=== PATIENT | female | born 1940 | race Caucasian/White ===

== ENCOUNTER 2017-08-21 14:53 | Inpatient (IN) | payer OTHER, SELFPAY ==
[~2017-08-21] VITALS: Ht 167.6 cm; Wt 66.4 kg
[~2017-08-21 14:53] MED LIST: HYDACE5 PO
[2017-08-21] MEDS ORDERED: LEVSOD75 (15:34)
[2017-08-21] MEDS ORDERED: Flovent 110 MCG12 GM (15:34)
[2017-08-21] MEDS ORDERED: Mucinex1200 MG (15:34)
[2017-08-21] MEDS ORDERED: LEVSOD88 (15:34)
[2017-08-21] MEDS ORDERED: Ventolin/Prove6.7 GM (15:34)
[2017-08-21 19:43] LABS: BASOPHILS ABSOLUTE AUTO 0.04 K/mm3 (0.00-0.23); BASOPHILS PERCENT AUTO 0 % (0-2); EOSINOPHILS ABSOLUTE AUTO 0.01 K/mm3 (0.00-0.68); EOSINOPHILS PERCENT AUTO 0 % (0-6); Hemoglobin 11.7 g/dL (11.5-16.0); IMMATURE GRAN ABSOLUTE AUTO 0.05 K/mm3 (0.00-0.10); IMMATURE GRAN PERCENT AUTO 0 % (0-1); LYMPHOCYTES ABSOLUTE AUTO 0.88 K/mm3 (0.84-5.20); LYMPHOCYTES PERCENT AUTO 6 % (21-46); MONOCYTES ABSOLUTE AUTO 0.71 K/mm3 (0.16-1.47); MONOCYTES PERCENT AUTO 4 % (4-13); Mean Corpuscular HGB 33.1 pg (26.0-34.0); Mean Corpuscular HGB Conc 32.5 g/dL (31.5-36.5); Mean Corpuscular Volume 102 fL (80-100); Mean Platelet Volume 8.8 fL (9.1-12.4); NEUTROPHILS ABSOLUTE AUTO 14.29 K/mm3 (1.96-9.15); NEUTROPHILS PERCENT AUTO 89 % (41-73); Platelet Count 265 K/mm3 (150-400); RDW Coefficient Variation 13.4 % (11.7-14.2); RDW Standard Deviation 50.3 fL (35.1-46.3); Red Blood Cell Count 3.53 M/mm3 (3.80-5.20); White Blood Cell Count 15.98 K/mm3 (4.00-11.30)
[2017-08-21 20:04] LABS: Anion Gap 9 mmol/L (6-16); Blood Urea Nitrogen 12 mg/dL (8-24); Bun/Creatinine Ratio 16.4 (12.0-20.0); CO2, Blood 25 mmol/L (21-32); Calcium, Blood 8.3 mg/dL (8.5-10.1); Chloride, Blood 103 mmol/L (98-108); Creatinine, Blood 0.73 mg/dL (0.40-1.00); Glomerular Filtration Rate >60 (60-); Glucose, Blood 121 mg/dL (70-99); Potassium, Blood 4.6 mmol/L (3.5-5.5); Sodium, Blood 137 mmol/L (136-145)
[2017-08-22 01:23] LABS: Source, Urine Catheter
[2017-08-22 01:33] LABS: Bilirubin, Urine Neg (Neg); Blood, Urine Neg (Neg); Glucose Qualitative, Urine Neg (Neg); Ketones, Urine 1+ (Neg); Leukocyte Esterase, Urine Neg (Neg); Nitrite, Urine Neg (Neg); Protein, Urine Neg (Neg); Urobilinogen, Urine NORM (Normal)
[2017-08-22 01:56] LABS: Appearance, Urine Clear (Clear); Color, Urine Yellow (P-Yellow)
[2017-08-22 04:05] LABS: BASOPHILS ABSOLUTE AUTO 0.02 K/mm3 (0.00-0.23); BASOPHILS PERCENT AUTO 0 % (0-2); EOSINOPHILS PERCENT AUTO 0 % (0-6); Hematocrit 34.6 % (33.0-51.0); Hemoglobin 11.2 g/dL (11.5-16.0); IMMATURE GRAN ABSOLUTE AUTO 0.02 K/mm3 (0.00-0.10); IMMATURE GRAN PERCENT AUTO 0 % (0-1); LYMPHOCYTES ABSOLUTE AUTO 1.41 K/mm3 (0.84-5.20); LYMPHOCYTES PERCENT AUTO 13 % (21-46); MONOCYTES ABSOLUTE AUTO 0.99 K/mm3 (0.16-1.47); MONOCYTES PERCENT AUTO 9 % (4-13); Mean Corpuscular HGB 33.1 pg (26.0-34.0); Mean Corpuscular HGB Conc 32.4 g/dL (31.5-36.5); Mean Corpuscular Volume 102 fL (80-100); Mean Platelet Volume 9.1 fL (9.1-12.4); NEUTROPHILS ABSOLUTE AUTO 8.29 K/mm3 (1.96-9.15); NEUTROPHILS PERCENT AUTO 77 % (41-73); Platelet Count 267 K/mm3 (150-400); RDW Coefficient Variation 13.5 % (11.7-14.2); RDW Standard Deviation 51.2 fL (35.1-46.3); Red Blood Cell Count 3.38 M/mm3 (3.80-5.20); White Blood Cell Count 10.73 K/mm3 (4.00-11.30)
[2017-08-22 04:22] LABS: Anion Gap 7 mmol/L (6-16); Blood Urea Nitrogen 14 mg/dL (8-24); Bun/Creatinine Ratio 19.3 (12.0-20.0); CO2, Blood 26 mmol/L (21-32); Calcium, Blood 8.2 mg/dL (8.5-10.1); Chloride, Blood 103 mmol/L (98-108); Creatinine, Blood 0.73 mg/dL (0.40-1.00); Glomerular Filtration Rate >60 (60-); Glucose, Blood 130 mg/dL (70-99); Potassium, Blood 5.2 mmol/L (3.5-5.5); Sodium, Blood 136 mmol/L (136-145)
[2017-08-23 04:58] LABS: BASOPHILS ABSOLUTE AUTO 0.04 K/mm3 (0.00-0.23); BASOPHILS PERCENT AUTO 0 % (0-2); EOSINOPHILS PERCENT AUTO 1 % (0-6); Hemoglobin 8.1 g/dL (11.5-16.0); IMMATURE GRAN ABSOLUTE AUTO 0.07 K/mm3 (0.00-0.10); IMMATURE GRAN PERCENT AUTO 1 % (0-1); LYMPHOCYTES ABSOLUTE AUTO 1.34 K/mm3 (0.84-5.20); LYMPHOCYTES PERCENT AUTO 11 % (21-46); MONOCYTES ABSOLUTE AUTO 1.25 K/mm3 (0.16-1.47); MONOCYTES PERCENT AUTO 10 % (4-13); Mean Corpuscular HGB 32.9 pg (26.0-34.0); Mean Corpuscular HGB Conc 32.4 g/dL (31.5-36.5); Mean Corpuscular Volume 102 fL (80-100); Mean Platelet Volume 9.5 fL (9.1-12.4); NEUTROPHILS ABSOLUTE AUTO 9.77 K/mm3 (1.96-9.15); NEUTROPHILS PERCENT AUTO 78 % (41-73); Platelet Count 202 K/mm3 (150-400); RDW Coefficient Variation 13.9 % (11.7-14.2); RDW Standard Deviation 51.8 fL (35.1-46.3); Red Blood Cell Count 2.46 M/mm3 (3.80-5.20); White Blood Cell Count 12.57 K/mm3 (4.00-11.30)
[2017-08-23 05:35] LABS: Anion Gap 7 mmol/L (6-16); Blood Urea Nitrogen 13 mg/dL (8-24); Bun/Creatinine Ratio 15.5 (12.0-20.0); CO2, Blood 26 mmol/L (21-32); Chloride, Blood 101 mmol/L (98-108); Creatinine, Blood 0.84 mg/dL (0.40-1.00); Glomerular Filtration Rate >60 (60-); Glucose, Blood 107 mg/dL (70-99); Potassium, Blood 4.5 mmol/L (3.5-5.5); Sodium, Blood 134 mmol/L (136-145)
[2017-08-23 09:05] LABS: Hematocrit 27.3 % (33.0-51.0); Hemoglobin 8.5 g/dL (11.5-16.0)
[2017-08-23 13:28] LABS: Alanine Aminotransfer (ALT/SGP 13 U/L (12-78); Albumin, Blood 2.7 g/dL (3.4-5.0); Albumin/Globulin Ratio 0.8 (0.8-1.8); Alk Phos 50 U/L (50-136); Aspartate Aminotrans (AST/SGOT 28 U/L (12-37); Bilirubin, Direct <0.1 mg/dL (0.0-0.3); Bilirubin, Indirect Unable to Calculate mg/dL (0.1-0.7); Bilirubin, Total 0.7 mg/dL (0.1-1.0); Globulin, Blood 3.3 g/dL (2.2-4.0)
[2017-08-23 23:45] LABS: Hematocrit 28.5 % (33.0-51.0); Hemoglobin 9.6 g/dL (11.5-16.0)
[2017-08-24 04:38] LABS: BASOPHILS ABSOLUTE AUTO 0.02 K/mm3 (0.00-0.23); BASOPHILS PERCENT AUTO 0 % (0-2); EOSINOPHILS ABSOLUTE AUTO 0.16 K/mm3 (0.00-0.68); EOSINOPHILS PERCENT AUTO 2 % (0-6); Hematocrit 28.9 % (33.0-51.0); Hemoglobin 9.4 g/dL (11.5-16.0); IMMATURE GRAN ABSOLUTE AUTO 0.03 K/mm3 (0.00-0.10); IMMATURE GRAN PERCENT AUTO 0 % (0-1); LYMPHOCYTES ABSOLUTE AUTO 1.34 K/mm3 (0.84-5.20); LYMPHOCYTES PERCENT AUTO 17 % (21-46); MONOCYTES ABSOLUTE AUTO 1.17 K/mm3 (0.16-1.47); MONOCYTES PERCENT AUTO 14 % (4-13); Mean Corpuscular HGB 31.6 pg (26.0-34.0); Mean Corpuscular HGB Conc 32.5 g/dL (31.5-36.5); Mean Platelet Volume 9.1 fL (9.1-12.4); NEUTROPHILS PERCENT AUTO 67 % (41-73); Platelet Count 172 K/mm3 (150-400); RDW Coefficient Variation 17.5 % (11.7-14.2); Red Blood Cell Count 2.97 M/mm3 (3.80-5.20); White Blood Cell Count 8.12 K/mm3 (4.00-11.30)
[2017-08-24 04:40] LABS: Mean Corpuscular Volume 97 fL (80-100)
[2017-08-24 05:17] LABS: Anion Gap 7 mmol/L (6-16); Blood Urea Nitrogen 10 mg/dL (8-24); Bun/Creatinine Ratio 12.4 (12.0-20.0); CO2, Blood 29 mmol/L (21-32); Chloride, Blood 102 mmol/L (98-108); Creatinine, Blood 0.81 mg/dL (0.40-1.00); Glomerular Filtration Rate >60 (60-); Glucose, Blood 83 mg/dL (70-99); Magnesium, Blood 2.1 mg/dL (1.6-2.4); Potassium, Blood 3.8 mmol/L (3.5-5.5); Sodium, Blood 138 mmol/L (136-145)
[2017-08-25 04:49] LABS: Hematocrit 31.2 % (33.0-51.0); Hemoglobin 10.3 g/dL (11.5-16.0)
[2017-08-26 06:06] LABS: BASOPHILS ABSOLUTE AUTO 0.02 K/mm3 (0.00-0.23); BASOPHILS PERCENT AUTO 0 % (0-2); EOSINOPHILS ABSOLUTE AUTO 0.21 K/mm3 (0.00-0.68); EOSINOPHILS PERCENT AUTO 3 % (0-6); Hematocrit 30.6 % (33.0-51.0); Hemoglobin 10.1 g/dL (11.5-16.0); IMMATURE GRAN ABSOLUTE AUTO 0.01 K/mm3 (0.00-0.10); IMMATURE GRAN PERCENT AUTO 0 % (0-1); LYMPHOCYTES ABSOLUTE AUTO 1.32 K/mm3 (0.84-5.20); LYMPHOCYTES PERCENT AUTO 18 % (21-46); MONOCYTES ABSOLUTE AUTO 0.86 K/mm3 (0.16-1.47); MONOCYTES PERCENT AUTO 12 % (4-13); Mean Corpuscular HGB 32.9 pg (26.0-34.0); Mean Platelet Volume 8.8 fL (9.1-12.4); NEUTROPHILS ABSOLUTE AUTO 4.95 K/mm3 (1.96-9.15); NEUTROPHILS PERCENT AUTO 67 % (41-73); Platelet Count 196 K/mm3 (150-400); RDW Coefficient Variation 16.1 % (11.7-14.2); RDW Standard Deviation 59.2 fL (35.1-46.3); Red Blood Cell Count 3.07 M/mm3 (3.80-5.20); White Blood Cell Count 7.37 K/mm3 (4.00-11.30)
[2017-08-26 06:10] LABS: Mean Corpuscular Volume 100 fL (80-100)
[2017-08-26 06:24] LABS: Anion Gap 5 mmol/L (6-16); Blood Urea Nitrogen 10 mg/dL (8-24); Bun/Creatinine Ratio 13.4 (12.0-20.0); CO2, Blood 28 mmol/L (21-32); Calcium, Blood 7.6 mg/dL (8.5-10.1); Chloride, Blood 107 mmol/L (98-108); Creatinine, Blood 0.75 mg/dL (0.40-1.00); Glomerular Filtration Rate >60 (60-); Glucose, Blood 94 mg/dL (70-99); Magnesium, Blood 1.7 mg/dL (1.6-2.4); Potassium, Blood 3.8 mmol/L (3.5-5.5); Sodium, Blood 140 mmol/L (136-145)
[2017-08-26] MEDS ORDERED: DOCU100 PO (10:13)
[2017-08-26] MEDS ORDERED: ACET325 PO (10:13)
[2017-08-26] MEDS ORDERED: LEVSOD75 PO (10:13)
[2017-08-26] MEDS ORDERED: Percocet 5-3251 EACH PO (10:15)
[2017-08-26] MEDS ORDERED: PANT40 PO (10:15)
== END 2017-08-26 15:05 | DRG 483 ==
LOC: ER 14:53 → SURS 17:04 → PCU 17:04 → SURS 08-22 10:21
PROVIDERS: Hospitalist; Internal Medicine; Orthopaedic Surgery
PROC: 30233N1 Transfusion of Nonautologous Red Blood Cells into Peripheral Vein, Percutaneous Approach (ICD-10-PCS; 2017-08-23)
PROC: 3E0234Z Introduction of Serum, Toxoid and Vaccine into Muscle, Percutaneous Approach (ICD-10-PCS; 2017-08-25)
PROC: 0W3P8ZZ Control Bleeding in Gastrointestinal Tract, Via Natural or Artificial Opening Endoscopic (ICD-10-PCS; 2017-08-25)
PROC: 0RRJ0J6 Replacement of Right Shoulder Joint with Synthetic Substitute, Humeral Surface, Open Approach (ICD-10-PCS; principal; 2017-08-25 07:30)
DX: S42.201A Unspecified fracture of upper end of right humerus, initial encounter for closed fracture (principal); G92 Toxic encephalopathy; K92.0 Hematemesis; J44.9 Chronic obstructive pulmonary disease, unspecified; K22.2 Esophageal obstruction; D62 Acute posthemorrhagic anemia; K25.3 Acute gastric ulcer without hemorrhage or perforation; E03.9 Hypothyroidism, unspecified; Z23 Encounter for immunization; W01.0XXA Fall on same level from slipping, tripping and stumbling without subsequent striking against object, initial encounter; Y92.480 Sidewalk as the place of occurrence of the external cause; K20.8 Other esophagitis; K44.9 Diaphragmatic hernia without obstruction or gangrene; K57.10 Diverticulosis of small intestine without perforation or abscess without bleeding; F10.10 Alcohol abuse, uncomplicated
CPT/HCPCS: 23605; 36415; 36430; 71045; 73030; 73060; 73200; 74176; 80048; 80076; 81003; 83735; 85014; 85018; 85025; 86850; 86900; 86901; 86920; 86923; 88305; 88311; 93005; 93010; 94640; 94760; 94762; 96374; 97110; 97162; 97165; 97535; 99152; 99285; C1776; C9113; G8978; G8979; G8987; G8988; G8989; J0171; J0330; J1170; J1885; J2250; J2405; J3010; J3411; J3475; J3480; J7030; J7042; J7120; P9016; Q2038

== ENCOUNTER → 2017-09-20 | Outpatient (CLI) | payer OTHER ==
[~2017-09-20] MED LIST changes: +ACET325 PO; +DOCU100 PO; +Flovent 110 MCG12 GM; +LEVSOD75; +LEVSOD75 PO; +LEVSOD88; +Mucinex1200 MG; +PANT40 PO; +Percocet 5-3251 EACH PO; +Ventolin/Prove6.7 GM
== END | disposition home or self-care (01) ==
LOC: OLS 12:45
DX: Z47.1 Aftercare following joint replacement surgery (principal); Z96.611 Presence of right artificial shoulder joint
CPT/HCPCS: 87070; 87075; 87205

== ENCOUNTER → 2017-12-22 | Outpatient (CLI) | payer OTHER, SELFPAY ==
[2017-12-22 17:52] LABS: BASOPHILS ABSOLUTE AUTO 0.05 K/mm3 (0.00-0.23); BASOPHILS PERCENT AUTO 1 % (0-2); EOSINOPHILS ABSOLUTE AUTO 0.19 K/mm3 (0.00-0.68); EOSINOPHILS PERCENT AUTO 3 % (0-6); Hematocrit 43.7 % (33.0-51.0); Hemoglobin 13.7 g/dL (11.5-16.0); IMMATURE GRAN ABSOLUTE AUTO 0.02 K/mm3 (0.00-0.10); IMMATURE GRAN PERCENT AUTO 0 % (0-1); LYMPHOCYTES ABSOLUTE AUTO 2.25 K/mm3 (0.84-5.20); LYMPHOCYTES PERCENT AUTO 29 % (21-46); MONOCYTES ABSOLUTE AUTO 0.69 K/mm3 (0.16-1.47); MONOCYTES PERCENT AUTO 9 % (4-13); Mean Corpuscular HGB 31.9 pg (26.0-34.0); Mean Corpuscular HGB Conc 31.4 g/dL (31.5-36.5); Mean Corpuscular Volume 102 fL (80-100); Mean Platelet Volume 8.8 fL (9.1-12.4); NEUTROPHILS ABSOLUTE AUTO 4.54 K/mm3 (1.96-9.15); NEUTROPHILS PERCENT AUTO 59 % (41-73); Platelet Count 374 K/mm3 (150-400); RDW Coefficient Variation 14.6 % (11.7-14.2); RDW Standard Deviation 54.2 fL (35.1-46.3); White Blood Cell Count 7.74 K/mm3 (4.00-11.30)
== END ==
LOC: LAB 12:30 → LAB SHORT 12:30
PROVIDERS: Nurse Practitioner Adult Health
DX: K21.9 Gastro-esophageal reflux disease without esophagitis (principal)
CPT/HCPCS: 85025

== ENCOUNTER → 2018-04-11 | Outpatient (CLI) | payer OTHER, SELFPAY ==
[2018-04-11 18:08] LABS: BASOPHILS ABSOLUTE AUTO 0.05 K/mm3 (0.00-0.23); BASOPHILS PERCENT AUTO 1 % (0-2); EOSINOPHILS ABSOLUTE AUTO 0.18 K/mm3 (0.00-0.68); EOSINOPHILS PERCENT AUTO 3 % (0-6); Hematocrit 49.9 % (33.0-51.0); IMMATURE GRAN ABSOLUTE AUTO 0.01 K/mm3 (0.00-0.10); IMMATURE GRAN PERCENT AUTO 0 % (0-1); LYMPHOCYTES ABSOLUTE AUTO 1.92 K/mm3 (0.84-5.20); LYMPHOCYTES PERCENT AUTO 29 % (21-46); MONOCYTES ABSOLUTE AUTO 0.53 K/mm3 (0.16-1.47); MONOCYTES PERCENT AUTO 8 % (4-13); Mean Corpuscular HGB 32.2 pg (26.0-34.0); Mean Corpuscular HGB Conc 32.1 g/dL (31.5-36.5); Mean Corpuscular Volume 100 fL (80-100); Mean Platelet Volume 9.3 fL (9.1-12.4); NEUTROPHILS ABSOLUTE AUTO 3.93 K/mm3 (1.96-9.15); NEUTROPHILS PERCENT AUTO 59 % (41-73); Platelet Count 329 K/mm3 (150-400); RDW Coefficient Variation 14.2 % (11.7-14.2); Red Blood Cell Count 4.97 M/mm3 (3.80-5.20); White Blood Cell Count 6.62 K/mm3 (4.00-11.30)
[2018-04-11 19:30] LABS: Alanine Aminotransfer (ALT/SGP 14 U/L (12-78); Alk Phos 97 U/L (50-136); Anion Gap 9 mmol/L (6-16); Aspartate Aminotrans (AST/SGOT 17 U/L (12-37); Bilirubin, Total 0.6 mg/dL (0.1-1.0); Blood Urea Nitrogen 6 mg/dL (8-24); CHOL/HDL RATIO 2.6; CO2, Blood 27 mmol/L (21-32); Calcium, Blood 9.2 mg/dL (8.5-10.1); Chloride, Blood 102 mmol/L (98-108); Cholesterol 201 mg/dL (50-200); Creatinine, Blood 0.67 mg/dL (0.40-1.00); Free Thyroxine 1.19 ng/dL (0.70-1.60); Globulin, Blood 4.2 g/dL (2.2-4.0); Glomerular Filtration Rate >60 (60-); Glucose, Blood 84 mg/dL (70-99); HDL Cholesterol 77 mg/dL (>39); LDL/HDL RATIO 1.4; Low Density Lipoprotein Chol 111 mg/dL (0-110); Potassium, Blood 3.9 mmol/L (3.5-5.5); Sodium, Blood 138 mmol/L (136-145); Total Protein, Blood 8.2 g/dL (6.4-8.2); Triglycerides 65 mg/dL (30-160); Very Low Density Lipoprot Chol 13 mg/dL (6-32)
== END | disposition home or self-care (01) ==
LOC: LAB 17:46 → LAB SHORT 17:46
PROVIDERS: Nurse Practitioner Adult Health
DX: K21.9 Gastro-esophageal reflux disease without esophagitis (principal); D53.9 Nutritional anemia, unspecified; J44.9 Chronic obstructive pulmonary disease, unspecified; E03.9 Hypothyroidism, unspecified
CPT/HCPCS: 80053; 80061; 84439; 84443; 85025

== ENCOUNTER → 2018-07-06 | Outpatient (CLI) | payer OTHER ==
[2018-07-06 17:54] LABS: BASOPHILS ABSOLUTE AUTO 0.05 K/mm3 (0.00-0.23); BASOPHILS PERCENT AUTO 1 % (0-2); EOSINOPHILS ABSOLUTE AUTO 0.09 K/mm3 (0.00-0.68); EOSINOPHILS PERCENT AUTO 1 % (0-6); Hematocrit 47.4 % (33.0-51.0); Hemoglobin 15.4 g/dL (11.5-16.0); IMMATURE GRAN ABSOLUTE AUTO 0.01 K/mm3 (0.00-0.10); IMMATURE GRAN PERCENT AUTO 0 % (0-1); LYMPHOCYTES ABSOLUTE AUTO 1.87 K/mm3 (0.84-5.20); LYMPHOCYTES PERCENT AUTO 28 % (21-46); MONOCYTES ABSOLUTE AUTO 0.56 K/mm3 (0.16-1.47); MONOCYTES PERCENT AUTO 9 % (4-13); Mean Corpuscular HGB 33.3 pg (26.0-34.0); Mean Corpuscular HGB Conc 32.5 g/dL (31.5-36.5); Mean Corpuscular Volume 102 fL (80-100); Mean Platelet Volume 9.1 fL (9.1-12.4); NEUTROPHILS ABSOLUTE AUTO 4.02 K/mm3 (1.96-9.15); NEUTROPHILS PERCENT AUTO 61 % (41-73); Platelet Count 318 K/mm3 (150-400); RDW Coefficient Variation 13.4 % (11.7-14.2); RDW Standard Deviation 51.4 fL (35.1-46.3); Red Blood Cell Count 4.63 M/mm3 (3.80-5.20)
[2018-07-06 18:26] LABS: Free Thyroxine 0.95 ng/dL (0.70-1.60)
[2018-07-06 18:36] LABS: Alanine Aminotransfer (ALT/SGP 14 U/L (12-78); Albumin, Blood 3.9 g/dL (3.4-5.0); Albumin/Globulin Ratio 0.9 (0.8-1.8); Alk Phos 100 U/L (50-136); Anion Gap 4 mmol/L (6-16); Aspartate Aminotrans (AST/SGOT 14 U/L (12-37); Bilirubin, Total 0.4 mg/dL (0.1-1.0); Blood Urea Nitrogen 10 mg/dL (8-24); Bun/Creatinine Ratio 13.1 (12.0-20.0); CO2, Blood 30 mmol/L (21-32); Calcium, Blood 9.3 mg/dL (8.5-10.1); Chloride, Blood 100 mmol/L (98-108); Creatinine, Blood 0.76 mg/dL (0.40-1.00); Globulin, Blood 4.4 g/dL (2.2-4.0); Glomerular Filtration Rate >60 (60-); Glucose, Blood 81 mg/dL (70-99); Potassium, Blood 4.4 mmol/L (3.5-5.5); Sodium, Blood 134 mmol/L (136-145); Total Protein, Blood 8.3 g/dL (6.4-8.2)
== END ==
LOC: LAB 12:31 → LAB SHORT 12:31
PROVIDERS: Nurse Practitioner Family
DX: E03.9 Hypothyroidism, unspecified (principal); D64.9 Anemia, unspecified; E83.51 Hypocalcemia
CPT/HCPCS: 80053; 84439; 84443; 85025

== ENCOUNTER → 2018-08-09 | Outpatient (CLI) | payer OTHER ==
[2018-08-09 20:07] LABS: Alanine Aminotransfer (ALT/SGP 16 U/L (12-78); Alk Phos 97 U/L (50-136); Anion Gap 11 mmol/L (6-16); Aspartate Aminotrans (AST/SGOT 14 U/L (12-37); Bilirubin, Total 0.9 mg/dL (0.1-1.0); Blood Urea Nitrogen 9 mg/dL (8-24); Bun/Creatinine Ratio 10.5 (12.0-20.0); CO2, Blood 23 mmol/L (21-32); Calcium, Blood 9.1 mg/dL (8.5-10.1); Chloride, Blood 98 mmol/L (98-108); Creatinine, Blood 0.86 mg/dL (0.40-1.00); Globulin, Blood 4.1 g/dL (2.2-4.0); Glomerular Filtration Rate >60 (60-); Glucose, Blood 76 mg/dL (70-99); Potassium, Blood 4.3 mmol/L (3.5-5.5); Sodium, Blood 132 mmol/L (136-145); Total Protein, Blood 8.1 g/dL (6.4-8.2)
[2018-08-10 11:58] LABS: BASOPHILS ABSOLUTE AUTO 0.06 K/mm3 (0.00-0.23); BASOPHILS PERCENT AUTO 1 % (0-2); EOSINOPHILS ABSOLUTE AUTO 0.11 K/mm3 (0.00-0.68); EOSINOPHILS PERCENT AUTO 2 % (0-6); Hematocrit 49.3 % (33.0-51.0); Hemoglobin 15.8 g/dL (11.5-16.0); IMMATURE GRAN ABSOLUTE AUTO 0.01 K/mm3 (0.00-0.10); IMMATURE GRAN PERCENT AUTO 0 % (0-1); LYMPHOCYTES ABSOLUTE AUTO 1.87 K/mm3 (0.84-5.20); LYMPHOCYTES PERCENT AUTO 27 % (21-46); MONOCYTES ABSOLUTE AUTO 0.53 K/mm3 (0.16-1.47); MONOCYTES PERCENT AUTO 8 % (4-13); Mean Corpuscular HGB 33.4 pg (26.0-34.0); Mean Corpuscular Volume 104 fL (80-100); Mean Platelet Volume 9.5 fL (9.1-12.4); NEUTROPHILS PERCENT AUTO 63 % (41-73); Platelet Count 317 K/mm3 (150-400); RDW Coefficient Variation 13.3 % (11.7-14.2); RDW Standard Deviation 51.7 fL (35.1-46.3); Red Blood Cell Count 4.73 M/mm3 (3.80-5.20); White Blood Cell Count 6.98 K/mm3 (4.00-11.30)
[2018-08-10 23:08] LABS: Free Thyroxine 1.19 ng/dL (0.70-1.60)
== END ==
LOC: LAB 12:15 → LAB SHORT 12:15
PROVIDERS: Nurse Practitioner Family
DX: M81.0 Age-related osteoporosis without current pathological fracture (principal); E03.9 Hypothyroidism, unspecified
CPT/HCPCS: 80053; 83970; 84439; 84443; 85025

== ENCOUNTER → 2018-10-10 | Outpatient (CLI) | payer OTHER ==
[2018-10-10 20:12] LABS: Free Thyroxine 1.1 ng/dL (0.70-1.60)
[2018-10-10 20:17] LABS: Thyroid Stimulating Hormone 3.81 uIU/mL (0.360-4.800)
== END ==
LOC: LAB SHORT 17:54 → LAB 17:54
PROVIDERS: Nurse Practitioner Family
DX: E03.9 Hypothyroidism, unspecified (principal)
CPT/HCPCS: 84439; 84443

== ENCOUNTER → 2018-11-09 | Outpatient (CLI) | payer OTHER ==
[2018-11-09 18:35] LABS: BASOPHILS ABSOLUTE AUTO 0.04 K/mm3 (0.00-0.23); BASOPHILS PERCENT AUTO 1 % (0-2); EOSINOPHILS ABSOLUTE AUTO 0.17 K/mm3 (0.00-0.68); EOSINOPHILS PERCENT AUTO 3 % (0-6); Hematocrit 42.6 % (33.0-51.0); Hemoglobin 13.9 g/dL (11.5-16.0); IMMATURE GRAN ABSOLUTE AUTO 0.01 K/mm3 (0.00-0.10); IMMATURE GRAN PERCENT AUTO 0 % (0-1); LYMPHOCYTES ABSOLUTE AUTO 1.52 K/mm3 (0.84-5.20); LYMPHOCYTES PERCENT AUTO 23 % (21-46); MONOCYTES ABSOLUTE AUTO 0.75 K/mm3 (0.16-1.47); MONOCYTES PERCENT AUTO 11 % (4-13); Mean Corpuscular HGB Conc 32.6 g/dL (31.5-36.5); Mean Corpuscular Volume 101 fL (80-100); Mean Platelet Volume 8.9 fL (9.1-12.4); NEUTROPHILS PERCENT AUTO 62 % (41-73); Platelet Count 565 K/mm3 (150-400); RDW Standard Deviation 51.3 fL (35.1-46.3); Red Blood Cell Count 4.21 M/mm3 (3.80-5.20); White Blood Cell Count 6.59 K/mm3 (4.00-11.30)
[2018-11-09 18:56] LABS: Alanine Aminotransfer (ALT/SGP 15 U/L (12-78); Alk Phos 87 U/L (50-136); Anion Gap 2 mmol/L (6-16); Aspartate Aminotrans (AST/SGOT 11 U/L (12-37); Bilirubin, Total 0.5 mg/dL (0.1-1.0); Blood Urea Nitrogen 9 mg/dL (8-24); Bun/Creatinine Ratio 12.2 (12.0-20.0); CO2, Blood 34 mmol/L (21-32); Chloride, Blood 103 mmol/L (98-108); Creatinine, Blood 0.74 mg/dL (0.40-1.00); Globulin, Blood 3.9 g/dL (2.2-4.0); Glomerular Filtration Rate >60 (60-); Glucose, Blood 93 mg/dL (70-99); Phosphorus, Blood 2.7 mg/dL (2.5-4.9); Sodium, Blood 139 mmol/L (136-145); Total Protein, Blood 7.9 g/dL (6.4-8.2)
== END ==
LOC: LAB 17:57 → LAB SHORT 17:57
PROVIDERS: Nurse Practitioner Family
DX: D53.9 Nutritional anemia, unspecified (principal); M81.0 Age-related osteoporosis without current pathological fracture
CPT/HCPCS: 80053; 82306; 83970; 84100; 85025

== ENCOUNTER → 2019-01-24 | Outpatient (CLI) | payer OTHER | END | disposition home or self-care (01) | LOC: LAB SHORT 10:15 → LAB 10:15 | DX: E03.9 Hypothyroidism, unspecified (principal) | CPT/HCPCS: 84443 ==

== ENCOUNTER → 2019-04-17 | Outpatient (CLI) | payer OTHER | END | disposition home or self-care (01) | LOC: LAB 18:25 → LAB SHORT 18:25 | DX: E03.9 Hypothyroidism, unspecified (principal) | CPT/HCPCS: 84443 ==

== ENCOUNTER → 2019-05-01 | Outpatient (CLI) | payer OTHER ==
[2019-05-01 19:53] LABS: Alanine Aminotransfer (ALT/SGP 14 U/L (12-78); Albumin, Blood 3.9 g/dL (3.4-5.0); Albumin/Globulin Ratio 1.1 (0.8-1.8); Alk Phos 69 U/L (50-136); Anion Gap 4 mmol/L (6-16); Aspartate Aminotrans (AST/SGOT 12 U/L (12-37); Bilirubin, Total 0.7 mg/dL (0.1-1.0); Blood Urea Nitrogen 11 mg/dL (8-24); Bun/Creatinine Ratio 14.3 (12.0-20.0); CO2, Blood 29 mmol/L (21-32); Calcium, Blood 9.3 mg/dL (8.5-10.1); Chloride, Blood 103 mmol/L (98-108); Creatinine, Blood 0.77 mg/dL (0.40-1.00); Globulin, Blood 3.6 g/dL (2.2-4.0); Glomerular Filtration Rate >60 (60-); Glucose, Blood 88 mg/dL (70-99); Phosphorus, Blood 2.9 mg/dL (2.5-4.9); Sodium, Blood 136 mmol/L (136-145); Total Protein, Blood 7.5 g/dL (6.4-8.2)
[2019-05-02 17:30] LABS: BASOPHILS ABSOLUTE AUTO 0.04 K/mm3 (0.00-0.23); BASOPHILS PERCENT AUTO 1 % (0-2); EOSINOPHILS PERCENT AUTO 2 % (0-6); Hematocrit 49.1 % (33.0-51.0); IMMATURE GRAN ABSOLUTE AUTO 0.01 K/mm3 (0.00-0.10); IMMATURE GRAN PERCENT AUTO 0 % (0-1); LYMPHOCYTES ABSOLUTE AUTO 1.65 K/mm3 (0.84-5.20); LYMPHOCYTES PERCENT AUTO 28 % (21-46); MONOCYTES ABSOLUTE AUTO 0.57 K/mm3 (0.16-1.47); MONOCYTES PERCENT AUTO 10 % (4-13); Mean Corpuscular HGB 33.3 pg (26.0-34.0); Mean Corpuscular HGB Conc 32.6 g/dL (31.5-36.5); Mean Corpuscular Volume 102 fL (80-100); Mean Platelet Volume 9.5 fL (9.1-12.4); NEUTROPHILS ABSOLUTE AUTO 3.61 K/mm3 (1.96-9.15); NEUTROPHILS PERCENT AUTO 60 % (41-73); Platelet Count 324 K/mm3 (150-400); Red Blood Cell Count 4.81 M/mm3 (3.80-5.20); White Blood Cell Count 5.98 K/mm3 (4.00-11.30)
== END | disposition home or self-care (01) ==
LOC: LAB 18:51 → LAB SHORT 18:51
PROVIDERS: Nurse Practitioner Family
DX: M81.0 Age-related osteoporosis without current pathological fracture (principal); E03.9 Hypothyroidism, unspecified
CPT/HCPCS: 80053; 84100; 85025

== ENCOUNTER → 2019-09-05 | Outpatient (CLI) | payer OTHER ==
[2019-09-05 17:48] LABS: BASOPHILS ABSOLUTE AUTO 0.06 K/mm3 (0.00-0.23); BASOPHILS PERCENT AUTO 1 % (0-2); EOSINOPHILS ABSOLUTE AUTO 0.15 K/mm3 (0.00-0.68); EOSINOPHILS PERCENT AUTO 2 % (0-6); Hematocrit 49.4 % (33.0-51.0); Hemoglobin 16.1 g/dL (11.5-16.0); IMMATURE GRAN ABSOLUTE AUTO 0.01 K/mm3 (0.00-0.10); IMMATURE GRAN PERCENT AUTO 0 % (0-1); LYMPHOCYTES ABSOLUTE AUTO 2.05 K/mm3 (0.84-5.20); LYMPHOCYTES PERCENT AUTO 31 % (21-46); MONOCYTES ABSOLUTE AUTO 0.61 K/mm3 (0.16-1.47); MONOCYTES PERCENT AUTO 9 % (4-13); Mean Corpuscular HGB 33.3 pg (26.0-34.0); Mean Corpuscular HGB Conc 32.6 g/dL (31.5-36.5); Mean Corpuscular Volume 102 fL (80-100); Mean Platelet Volume 9.2 fL (9.1-12.4); NEUTROPHILS ABSOLUTE AUTO 3.77 K/mm3 (1.96-9.15); NEUTROPHILS PERCENT AUTO 57 % (41-73); Platelet Count 295 K/mm3 (150-400); RDW Standard Deviation 49.1 fL (35.1-46.3); Red Blood Cell Count 4.84 M/mm3 (3.80-5.20); White Blood Cell Count 6.65 K/mm3 (4.00-11.30)
[2019-09-05 18:08] LABS: Alanine Aminotransfer (ALT/SGP 14 U/L (12-78); Albumin, Blood 3.9 g/dL (3.4-5.0); Albumin/Globulin Ratio 1.1 (0.8-1.8); Alk Phos 66 U/L (50-136); Anion Gap 2 mmol/L (6-16); Aspartate Aminotrans (AST/SGOT 14 U/L (12-37); Bilirubin, Total 0.6 mg/dL (0.1-1.0); Blood Urea Nitrogen 10 mg/dL (8-24); Bun/Creatinine Ratio 12.1 (12.0-20.0); CHOL/HDL RATIO 2.4; CO2, Blood 31 mmol/L (21-32); Calcium, Blood 9.3 mg/dL (8.5-10.1); Chloride, Blood 103 mmol/L (98-108); Cholesterol 187 mg/dL (50-200); Creatinine, Blood 0.83 mg/dL (0.40-1.00); Globulin, Blood 3.6 g/dL (2.2-4.0); Glomerular Filtration Rate >60 (60-); Glucose, Blood 108 mg/dL (70-99); HDL Cholesterol 78 mg/dL (>39); LDL/HDL RATIO 1.3; Low Density Lipoprotein Chol 98 mg/dL (0-110); Potassium, Blood 3.7 mmol/L (3.5-5.5); Sodium, Blood 136 mmol/L (136-145); Total Protein, Blood 7.5 g/dL (6.4-8.2); Triglycerides 57 mg/dL (30-160); Very Low Density Lipoprot Chol 11 mg/dL (6-32)
[2019-09-05 18:10] LABS: LDL Direct Measurement 93 mg/dL (0-130)
== END | disposition home or self-care (01) ==
LOC: LAB 16:12 → LAB SHORT 16:12
PROVIDERS: Nurse Practitioner Family
DX: M81.0 Age-related osteoporosis without current pathological fracture (principal); E78.2 Mixed hyperlipidemia
CPT/HCPCS: 80053; 80061; 83721; 85025

== ENCOUNTER → 2020-04-08 | Outpatient (CLI) | payer OTHER ==
[2020-04-08 19:24] LABS: BASOPHILS ABSOLUTE AUTO 0.06 K/mm3 (0.00-0.23); BASOPHILS PERCENT AUTO 1 % (0-2); EOSINOPHILS ABSOLUTE AUTO 0.17 K/mm3 (0.00-0.68); EOSINOPHILS PERCENT AUTO 2 % (0-6); Hematocrit 48.3 % (33.0-51.0); Hemoglobin 15.8 g/dL (11.5-16.0); IMMATURE GRAN ABSOLUTE AUTO 0.02 K/mm3 (0.00-0.10); IMMATURE GRAN PERCENT AUTO 0 % (0-1); LYMPHOCYTES ABSOLUTE AUTO 1.99 K/mm3 (0.84-5.20); LYMPHOCYTES PERCENT AUTO 27 % (21-46); MONOCYTES ABSOLUTE AUTO 0.74 K/mm3 (0.16-1.47); MONOCYTES PERCENT AUTO 10 % (4-13); Mean Corpuscular HGB 33.1 pg (26.0-34.0); Mean Corpuscular HGB Conc 32.7 g/dL (31.5-36.5); Mean Corpuscular Volume 101 fL (80-100); Mean Platelet Volume 9.6 fL (9.1-12.4); NEUTROPHILS ABSOLUTE AUTO 4.49 K/mm3 (1.96-9.15); NEUTROPHILS PERCENT AUTO 60 % (41-73); Platelet Count 313 K/mm3 (150-400); RDW Coefficient Variation 14.1 % (11.7-14.2); RDW Standard Deviation 52.8 fL (35.1-46.3); Red Blood Cell Count 4.78 M/mm3 (3.80-5.20); White Blood Cell Count 7.47 K/mm3 (4.00-11.30)
[2020-04-08 20:07] LABS: Very Low Density Lipoprot Chol 14 mg/dL (6-32)
[2020-04-08 20:16] LABS: Alanine Aminotransfer (ALT/SGP 14 U/L (12-78); Albumin, Blood 3.8 g/dL (3.4-5.0); Alk Phos 85 U/L (50-136); Anion Gap 6 mmol/L (6-16); Aspartate Aminotrans (AST/SGOT 20 U/L (12-37); Bilirubin, Total 0.6 mg/dL (0.1-1.0); Blood Urea Nitrogen 10 mg/dL (8-24); Bun/Creatinine Ratio 13.2 (12.0-20.0); CO2, Blood 30 mmol/L (21-32); Calcium, Blood 9.5 mg/dL (8.5-10.1); Chloride, Blood 102 mmol/L (98-108); Cholesterol 213 mg/dL (50-200); Creatinine, Blood 0.76 mg/dL (0.40-1.00); Globulin, Blood 3.7 g/dL (2.2-4.0); Glomerular Filtration Rate >60 (60-); Glucose, Blood 106 mg/dL (70-99); HDL Cholesterol 70 mg/dL (>39); LDL/HDL RATIO 1.8; Low Density Lipoprotein Chol 129 mg/dL (0-110); Potassium, Blood 4.3 mmol/L (3.5-5.5); Sodium, Blood 138 mmol/L (136-145); Total Protein, Blood 7.5 g/dL (6.4-8.2); Triglycerides 71 mg/dL (30-160)
== END ==
LOC: LAB SHORT 18:25 → LAB 18:25
PROVIDERS: Nurse Practitioner Family
DX: E03.9 Hypothyroidism, unspecified (principal); E78.2 Mixed hyperlipidemia
CPT/HCPCS: 80053; 80061; 84443; 85025

== ENCOUNTER → 2020-04-15 | Outpatient (CLI) | payer OTHER | LOC: LAB SHORT 16:43 → LAB 16:43 | DX: E03.9 Hypothyroidism, unspecified (principal); M81.0 Age-related osteoporosis without current pathological fracture | CPT/HCPCS: 82306; 84443 ==

== ENCOUNTER → 2020-05-27 | Outpatient (CLI) | payer OTHER | END | disposition home or self-care (01) | LOC: LAB 16:33 → LAB SHORT 16:33 | DX: E03.9 Hypothyroidism, unspecified (principal) | CPT/HCPCS: 84443 ==

== ENCOUNTER → 2020-07-17 | Outpatient (CLI) | payer OTHER, SELFPAY | END | disposition home or self-care (01) | LOC: LAB SHORT 16:21 → LAB 16:21 | DX: E03.9 Hypothyroidism, unspecified (principal) | CPT/HCPCS: 84443 ==

== ENCOUNTER → 2020-10-17 | Outpatient (CLI) | payer OTHER ==
[2020-10-17 19:20] LABS: BASOPHILS ABSOLUTE AUTO 0.06 K/mm3 (0.00-0.23); BASOPHILS PERCENT AUTO 1 % (0-2); EOSINOPHILS ABSOLUTE AUTO 0.23 K/mm3 (0.00-0.68); EOSINOPHILS PERCENT AUTO 3 % (0-6); Hematocrit 42.1 % (33.0-51.0); Hemoglobin 13.8 g/dL (11.5-16.0); IMMATURE GRAN ABSOLUTE AUTO 0.02 K/mm3 (0.00-0.10); IMMATURE GRAN PERCENT AUTO 0 % (0-1); LYMPHOCYTES ABSOLUTE AUTO 1.82 K/mm3 (0.84-5.20); LYMPHOCYTES PERCENT AUTO 26 % (21-46); MONOCYTES ABSOLUTE AUTO 0.65 K/mm3 (0.16-1.47); MONOCYTES PERCENT AUTO 9 % (4-13); Mean Corpuscular HGB 32.2 pg (26.0-34.0); Mean Corpuscular HGB Conc 32.8 g/dL (31.5-36.5); Mean Corpuscular Volume 98 fL (80-100); Mean Platelet Volume 9.3 fL (9.1-12.4); NEUTROPHILS ABSOLUTE AUTO 4.22 K/mm3 (1.96-9.15); NEUTROPHILS PERCENT AUTO 60 % (41-73); Platelet Count 285 K/mm3 (150-400); RDW Standard Deviation 50.6 fL (35.1-46.3); Red Blood Cell Count 4.28 M/mm3 (3.80-5.20)
[2020-10-17 19:49] LABS: Alanine Aminotransfer (ALT/SGP 17 U/L (12-78); Albumin/Globulin Ratio 1.1 (0.8-1.8); Alk Phos 70 U/L (50-136); Anion Gap 6 mmol/L (6-16); Aspartate Aminotrans (AST/SGOT 13 U/L (12-37); Bilirubin, Total 0.6 mg/dL (0.1-1.0); Blood Urea Nitrogen 22 mg/dL (8-24); Bun/Creatinine Ratio 25.6 (12.0-20.0); CHOL/HDL RATIO 2.3; CO2, Blood 26 mmol/L (21-32); Chloride, Blood 105 mmol/L (98-108); Cholesterol 209 mg/dL (50-200); Creatinine, Blood 0.86 mg/dL (0.40-1.00); Free Thyroxine 0.85 ng/dL (0.70-1.60); Globulin, Blood 3.6 g/dL (2.2-4.0); Glomerular Filtration Rate >60 (60-); Glucose, Blood 113 mg/dL (70-99); HDL Cholesterol 90 mg/dL (>39); LDL/HDL RATIO 1.2; Low Density Lipoprotein Chol 111 mg/dL (0-110); Sodium, Blood 137 mmol/L (136-145); Total Protein, Blood 7.6 g/dL (6.4-8.2); Triglycerides 40 mg/dL (30-160); Triiodothyronine, Free 1.24 pg/mL (2.18-3.98); Very Low Density Lipoprot Chol 8 mg/dL (6-32)
== END | disposition home or self-care (01) ==
LOC: LAB 08:46 → LAB SHORT 08:46
PROVIDERS: Nurse Practitioner Family
DX: E78.2 Mixed hyperlipidemia (principal); E03.9 Hypothyroidism, unspecified
CPT/HCPCS: 80053; 80061; 84439; 84443; 84481; 85025

== ENCOUNTER 2020-12-05 10:24 | Emergency (ER) | payer OTHER ==
[~2020-12-05] VITALS: Ht 167.6 cm; Wt 61.2 kg
[2020-12-05 11:40] LABS: BASOPHILS ABSOLUTE AUTO 0.06 K/mm3 (0.00-0.23); BASOPHILS PERCENT AUTO 1 % (0-2); EOSINOPHILS ABSOLUTE AUTO 0.26 K/mm3 (0.00-0.68); EOSINOPHILS PERCENT AUTO 4 % (0-6); Hematocrit 42.6 % (33.0-51.0); Hemoglobin 13.8 g/dL (11.5-16.0); IMMATURE GRAN ABSOLUTE AUTO 0.02 K/mm3 (0.00-0.10); IMMATURE GRAN PERCENT AUTO 0 % (0-1); LYMPHOCYTES ABSOLUTE AUTO 1.57 K/mm3 (0.84-5.20); LYMPHOCYTES PERCENT AUTO 22 % (21-46); MONOCYTES ABSOLUTE AUTO 0.62 K/mm3 (0.16-1.47); MONOCYTES PERCENT AUTO 9 % (4-13); Mean Corpuscular HGB 32.9 pg (26.0-34.0); Mean Corpuscular HGB Conc 32.4 g/dL (31.5-36.5); Mean Corpuscular Volume 102 fL (80-100); Mean Platelet Volume 9.2 fL (9.1-12.4); NEUTROPHILS ABSOLUTE AUTO 4.56 K/mm3 (1.96-9.15); NEUTROPHILS PERCENT AUTO 64 % (41-73); Platelet Count 282 K/mm3 (150-400); RDW Standard Deviation 52.8 fL (35.1-46.3); Red Blood Cell Count 4.19 M/mm3 (3.80-5.20); White Blood Cell Count 7.09 K/mm3 (4.00-11.30)
[2020-12-05 11:55] LABS: Alanine Aminotransfer (ALT/SGP 15 U/L (12-78); Albumin, Blood 3.8 g/dL (3.4-5.0); Alk Phos 63 U/L (50-136); Anion Gap 4 mmol/L (6-16); Aspartate Aminotrans (AST/SGOT 14 U/L (12-37); Bilirubin, Total 0.4 mg/dL (0.1-1.0); Blood Urea Nitrogen 16 mg/dL (8-24); Bun/Creatinine Ratio 18.1 (12.0-20.0); CO2, Blood 27 mmol/L (21-32); Calcium, Blood 8.8 mg/dL (8.5-10.1); Chloride, Blood 107 mmol/L (98-108); Creatinine, Blood 0.88 mg/dL (0.40-1.00); Globulin, Blood 3.8 g/dL (2.2-4.0); Glomerular Filtration Rate >60 (60-); Glucose, Blood 87 mg/dL (70-99); Magnesium, Blood 1.8 mg/dL (1.6-2.4); Potassium, Blood 3.9 mmol/L (3.5-5.5); Sodium, Blood 138 mmol/L (136-145); Total Protein, Blood 7.6 g/dL (6.4-8.2); Troponin I <0.015 ng/mL (0.000-0.040)
== END 2020-12-05 14:17 | disposition home or self-care (01) ==
LOC: ER 10:24
PROVIDERS: Emergency Medicine
DX: R00.2 Palpitations (principal); E03.9 Hypothyroidism, unspecified; J44.9 Chronic obstructive pulmonary disease, unspecified; Z88.0 Allergy status to penicillin; Z79.899 Other long term (current) drug therapy; Z87.891 Personal history of nicotine dependence
CPT/HCPCS: 71045; 80053; 80061; 83735; 83880; 84443; 84484; 85025; 93005; 93010; 93242; 99284-25

== ENCOUNTER 2021-02-11 16:04 | Emergency (ER) | payer OTHER ==
[~2021-02-11] VITALS: Ht 167.6 cm; Wt 64.1 kg
[2021-02-11 16:50] LABS: BASOPHILS ABSOLUTE AUTO 0.06 K/mm3 (0.00-0.23); BASOPHILS PERCENT AUTO 1 % (0-2); EOSINOPHILS PERCENT AUTO 4 % (0-6); Hemoglobin 14.1 g/dL (11.5-16.0); IMMATURE GRAN ABSOLUTE AUTO 0.02 K/mm3 (0.00-0.10); IMMATURE GRAN PERCENT AUTO 0 % (0-1); LYMPHOCYTES ABSOLUTE AUTO 1.74 K/mm3 (0.84-5.20); LYMPHOCYTES PERCENT AUTO 21 % (21-46); MONOCYTES ABSOLUTE AUTO 0.76 K/mm3 (0.16-1.47); MONOCYTES PERCENT AUTO 9 % (4-13); Mean Corpuscular HGB 32.4 pg (26.0-34.0); Mean Corpuscular HGB Conc 32.8 g/dL (31.5-36.5); Mean Corpuscular Volume 99 fL (80-100); Mean Platelet Volume 8.9 fL (9.1-12.4); NEUTROPHILS ABSOLUTE AUTO 5.25 K/mm3 (1.96-9.15); NEUTROPHILS PERCENT AUTO 65 % (41-73); Platelet Count 284 K/mm3 (150-400); RDW Coefficient Variation 13.4 % (11.7-14.2); Red Blood Cell Count 4.35 M/mm3 (3.80-5.20); White Blood Cell Count 8.13 K/mm3 (4.00-11.30)
[2021-02-11 17:23] LABS: Alanine Aminotransfer (ALT/SGP 19 U/L (12-78); Albumin, Blood 3.9 g/dL (3.4-5.0); Alk Phos 61 U/L (50-136); Anion Gap 5 mmol/L (6-16); Aspartate Aminotrans (AST/SGOT 19 U/L (12-37); Bilirubin, Total 0.4 mg/dL (0.1-1.0); Blood Urea Nitrogen 21 mg/dL (8-24); Bun/Creatinine Ratio 23.2 (12.0-20.0); CO2, Blood 23 mmol/L (21-32); Calcium, Blood 9.2 mg/dL (8.5-10.1); Chloride, Blood 109 mmol/L (98-108); Glomerular Filtration Rate >60 (60-); Glucose, Blood 91 mg/dL (70-99); Potassium, Blood 4.3 mmol/L (3.5-5.5); Sodium, Blood 137 mmol/L (136-145); Total Protein, Blood 7.9 g/dL (6.4-8.2); Troponin I <0.015 ng/mL (0.000-0.040)
[2021-02-11] MEDS ORDERED: FLOVENT HFA12 GM INH (17:43)
[2021-02-11] MEDS ORDERED: PANTOPRAZOLE SO40 M2 PO (17:43)
[2021-02-11] MEDS ORDERED: ALEN70 PO (17:44)
== END 2021-02-11 20:09 | disposition home or self-care (01) ==
LOC: ER 16:04
PROVIDERS: Physician Assistant
DX: I49.3 Ventricular premature depolarization (principal); J44.9 Chronic obstructive pulmonary disease, unspecified; E03.9 Hypothyroidism, unspecified; Z88.0 Allergy status to penicillin; Z87.891 Personal history of nicotine dependence; Z79.899 Other long term (current) drug therapy
CPT/HCPCS: 36415; 71046; 80053; 83880; 84484; 85025; 93005; 93010; 99285-25

== ENCOUNTER → 2021-02-18 | Outpatient (CLI) | payer OTHER ==
[~2021-02-18] MED LIST changes: +ALEN70 PO; +FLOVENT HFA12 GM INH; +PANTOPRAZOLE SO40 M2 PO
[2021-02-18 17:48] LABS: BASOPHILS ABSOLUTE AUTO 0.05 K/mm3 (0.00-0.23); BASOPHILS PERCENT AUTO 1 % (0-2); EOSINOPHILS ABSOLUTE AUTO 0.22 K/mm3 (0.00-0.68); EOSINOPHILS PERCENT AUTO 4 % (0-6); Hematocrit 43.8 % (33.0-51.0); Hemoglobin 14.2 g/dL (11.5-16.0); IMMATURE GRAN ABSOLUTE AUTO 0.01 K/mm3 (0.00-0.10); IMMATURE GRAN PERCENT AUTO 0 % (0-1); LYMPHOCYTES PERCENT AUTO 25 % (21-46); MONOCYTES ABSOLUTE AUTO 0.52 K/mm3 (0.16-1.47); MONOCYTES PERCENT AUTO 9 % (4-13); Mean Corpuscular HGB 32.6 pg (26.0-34.0); Mean Corpuscular HGB Conc 32.4 g/dL (31.5-36.5); Mean Corpuscular Volume 101 fL (80-100); Mean Platelet Volume 9.5 fL (9.1-12.4); NEUTROPHILS ABSOLUTE AUTO 3.66 K/mm3 (1.96-9.15); NEUTROPHILS PERCENT AUTO 61 % (41-73); Platelet Count 265 K/mm3 (150-400); RDW Coefficient Variation 13.6 % (11.7-14.2); Red Blood Cell Count 4.35 M/mm3 (3.80-5.20); White Blood Cell Count 5.96 K/mm3 (4.00-11.30)
== END | disposition home or self-care (01) ==
LOC: LAB 16:30 → LAB SHORT 16:30
PROVIDERS: Nurse Practitioner Family
DX: I49.3 Ventricular premature depolarization (principal)
CPT/HCPCS: 83880; 85025

== ENCOUNTER → 2021-07-23 | Outpatient (CLI) | payer OTHER ==
[2021-07-23 17:46] LABS: BASOPHILS ABSOLUTE AUTO 0.05 K/mm3 (0.00-0.23); BASOPHILS PERCENT AUTO 1 % (0-2); EOSINOPHILS PERCENT AUTO 3 % (0-6); Hematocrit 44.7 % (33.0-51.0); Hemoglobin 14.8 g/dL (11.5-16.0); IMMATURE GRAN ABSOLUTE AUTO 0.02 K/mm3 (0.00-0.10); IMMATURE GRAN PERCENT AUTO 0 % (0-1); LYMPHOCYTES ABSOLUTE AUTO 1.93 K/mm3 (0.84-5.20); LYMPHOCYTES PERCENT AUTO 26 % (21-46); MONOCYTES ABSOLUTE AUTO 0.74 K/mm3 (0.16-1.47); MONOCYTES PERCENT AUTO 10 % (4-13); Mean Corpuscular HGB 32.9 pg (26.0-34.0); Mean Corpuscular HGB Conc 33.1 g/dL (31.5-36.5); Mean Corpuscular Volume 99 fL (80-100); Mean Platelet Volume 9.4 fL (9.1-12.4); NEUTROPHILS ABSOLUTE AUTO 4.53 K/mm3 (1.96-9.15); NEUTROPHILS PERCENT AUTO 61 % (41-73); Platelet Count 289 K/mm3 (150-400); RDW Coefficient Variation 13.7 % (11.7-14.2); RDW Standard Deviation 50.7 fL (35.1-46.3); White Blood Cell Count 7.47 K/mm3 (4.00-11.30)
[2021-07-23 18:02] LABS: Albumin, Blood 3.7 g/dL (3.4-5.0); Albumin/Globulin Ratio 0.9 (0.8-1.8); Alk Phos 58 U/L (50-136); Anion Gap 5 mmol/L (6-16); Aspartate Aminotrans (AST/SGOT 17 U/L (12-37); Bilirubin, Total 0.6 mg/dL (0.1-1.0); Blood Urea Nitrogen 22 mg/dL (8-24); Bun/Creatinine Ratio 24.3 (12.0-20.0); CHOL/HDL RATIO 3.1; CO2, Blood 26 mmol/L (21-32); Calcium, Blood 9.4 mg/dL (8.5-10.1); Chloride, Blood 104 mmol/L (98-108); Cholesterol 238 mg/dL (50-200); Globulin, Blood 4.1 g/dL (2.2-4.0); Glomerular Filtration Rate >60 (60-); Glucose, Blood 98 mg/dL (70-99); HDL Cholesterol 76 mg/dL (>39); Low Density Lipoprotein Chol 152 mg/dL (0-110); Potassium, Blood 4.5 mmol/L (3.5-5.5); Sodium, Blood 135 mmol/L (136-145); Total Protein, Blood 7.8 g/dL (6.4-8.2); Triglycerides 51 mg/dL (30-160); Very Low Density Lipoprot Chol 10 mg/dL (6-32)
[2021-07-23 18:13] LABS: Alanine Aminotransfer (ALT/SGP 21 U/L (12-78)
== END | disposition home or self-care (01) ==
LOC: LAB SHORT 11:12
PROVIDERS: Nurse Practitioner Family
DX: I49.3 Ventricular premature depolarization (principal); E03.9 Hypothyroidism, unspecified; E78.2 Mixed hyperlipidemia
CPT/HCPCS: 80053; 80061; 84443; 85025

== ENCOUNTER → 2021-12-04 | Outpatient (CLI) | payer OTHER | END | disposition home or self-care (01) | LOC: LAB SHORT 08:30 → LAB 08:30 | DX: E05.90 Thyrotoxicosis, unspecified without thyrotoxic crisis or storm (principal); E03.9 Hypothyroidism, unspecified | CPT/HCPCS: 84443 ==

== ENCOUNTER → 2022-02-09 | Outpatient (CLI) | payer OTHER | END | disposition home or self-care (01) | LOC: LAB 11:30 → LAB SHORT 11:30 | DX: R21 Rash and other nonspecific skin eruption (principal) | CPT/HCPCS: 87070; 87077; 87147; 87186 ==

== ENCOUNTER → 2022-02-09 | Outpatient (CLI) | payer OTHER | END | disposition home or self-care (01) | LOC: LAB SHORT 11:46 → LAB 11:46 | DX: E03.9 Hypothyroidism, unspecified (principal) | CPT/HCPCS: 84443 ==

== ENCOUNTER → 2022-09-21 | Outpatient (CLI) | payer OTHER ==
[2022-09-21 17:49] LABS: BASOPHILS ABSOLUTE AUTO 0.04 K/mm3 (0.00-0.23); BASOPHILS PERCENT AUTO 1 % (0-2); EOSINOPHILS ABSOLUTE AUTO 0.15 K/mm3 (0.00-0.68); EOSINOPHILS PERCENT AUTO 3 % (0-6); Hematocrit 43.9 % (33.0-51.0); Hemoglobin 14.4 g/dL (11.5-16.0); IMMATURE GRAN ABSOLUTE AUTO 0.01 K/mm3 (0.00-0.10); IMMATURE GRAN PERCENT AUTO 0 % (0-1); LYMPHOCYTES ABSOLUTE AUTO 1.68 K/mm3 (0.84-5.20); LYMPHOCYTES PERCENT AUTO 28 % (21-46); MONOCYTES ABSOLUTE AUTO 0.57 K/mm3 (0.16-1.47); MONOCYTES PERCENT AUTO 9 % (4-13); Mean Corpuscular HGB 31.4 pg (26.0-34.0); Mean Corpuscular HGB Conc 32.8 g/dL (31.5-36.5); Mean Corpuscular Volume 96 fL (80-100); Mean Platelet Volume 9.4 fL (9.1-12.4); NEUTROPHILS ABSOLUTE AUTO 3.61 K/mm3 (1.96-9.15); NEUTROPHILS PERCENT AUTO 60 % (41-73); Platelet Count 312 K/mm3 (150-400); RDW Coefficient Variation 14.1 % (11.7-14.2); RDW Standard Deviation 49.4 fL (35.1-46.3); Red Blood Cell Count 4.58 M/mm3 (3.80-5.20); White Blood Cell Count 6.06 K/mm3 (4.00-11.30)
[2022-09-21 19:38] LABS: Alanine Aminotransfer (ALT/SGP 16 U/L (12-78); Albumin, Blood 3.9 g/dL (3.4-5.0); Albumin/Globulin Ratio 1.1 (0.8-1.8); Alk Phos 55 U/L (50-136); Anion Gap 4 mmol/L (6-16); Aspartate Aminotrans (AST/SGOT 13 U/L (12-37); Bilirubin, Total 0.6 mg/dL (0.1-1.0); Blood Urea Nitrogen 22 mg/dL (8-24); CHOL/HDL RATIO 2.7; CO2, Blood 28 mmol/L (21-32); Calcium, Blood 9.6 mg/dL (8.5-10.1); Chloride, Blood 103 mmol/L (98-108); Cholesterol 211 mg/dL (50-200); Globulin, Blood 3.6 g/dL (2.2-4.0); Glucose, Blood 123 mg/dL (70-99); HDL Cholesterol 79 mg/dL (>39); LDL/HDL RATIO 1.5; Low Density Lipoprotein Chol 121 mg/dL (0-110); Potassium, Blood 4.4 mmol/L (3.5-5.5); Sodium, Blood 135 mmol/L (136-145); Total Protein, Blood 7.5 g/dL (6.4-8.2); Triglycerides 55 mg/dL (30-160); Very Low Density Lipoprot Chol 11 mg/dL (6-32)
[2022-09-21 19:39] LABS: Bun/Creatinine Ratio 26.3 (12.0-20.0); Creatinine, Blood 0.84 mg/dL (0.40-1.00); Glomerular Filtration Rate 70 (60-)
== END | disposition home or self-care (01) ==
LOC: LAB SHORT 09:46 → LAB 09:46
PROVIDERS: Nurse Practitioner Family
DX: E78.2 Mixed hyperlipidemia (principal); R73.03 Prediabetes
CPT/HCPCS: 80053; 80061; 83036; 85025

== ENCOUNTER → 2022-12-23 | Outpatient (CLI) | payer OTHER | END | disposition home or self-care (01) | LOC: LAB SHORT 16:22 → LAB 16:22 | DX: E03.9 Hypothyroidism, unspecified (principal) | CPT/HCPCS: 84443 ==

== ENCOUNTER 2023-07-07 16:21 | Emergency (ER) | payer OTHER ==
[~2023-07-07] VITALS: Ht 167.6 cm; Wt 61.2 kg
[2023-07-07 17:10] LABS: BASOPHILS ABSOLUTE AUTO 0.03 K/mm3 (0.00-0.23); BASOPHILS PERCENT AUTO 1 % (0-2); EOSINOPHILS ABSOLUTE AUTO 0.11 K/mm3 (0.00-0.68); EOSINOPHILS PERCENT AUTO 2 % (0-6); Hemoglobin 13.1 g/dL (11.5-16.0); IMMATURE GRAN ABSOLUTE AUTO 0.01 K/mm3 (0.00-0.10); IMMATURE GRAN PERCENT AUTO 0 % (0-1); LYMPHOCYTES ABSOLUTE AUTO 1.58 K/mm3 (0.84-5.20); LYMPHOCYTES PERCENT AUTO 27 % (21-46); MONOCYTES ABSOLUTE AUTO 0.61 K/mm3 (0.16-1.47); MONOCYTES PERCENT AUTO 10 % (4-13); Mean Corpuscular HGB 32.7 pg (26.0-34.0); Mean Corpuscular HGB Conc 32.8 g/dL (31.5-36.5); Mean Corpuscular Volume 100 fL (80-100); Mean Platelet Volume 8.9 fL (9.1-12.4); NEUTROPHILS ABSOLUTE AUTO 3.54 K/mm3 (1.96-9.15); NEUTROPHILS PERCENT AUTO 60 % (41-73); Platelet Count 285 K/mm3 (150-400); RDW Coefficient Variation 15.1 % (11.7-14.2); RDW Standard Deviation 55.5 fL (35.1-46.3); Red Blood Cell Count 4.01 M/mm3 (3.80-5.20); White Blood Cell Count 5.88 K/mm3 (4.00-11.30)
[2023-07-07 17:48] LABS: Albumin, Blood 3.8 g/dL (3.4-5.0); Albumin/Globulin Ratio 0.9 (0.8-1.8); Bilirubin, Total 0.5 mg/dL (0.1-1.0); Bun/Creatinine Ratio 18.6 (12.0-20.0); Calcium, Blood 9.6 mg/dL (8.5-10.1); Creatinine, Blood 0.75 mg/dL (0.40-1.00); Globulin, Blood 4.1 g/dL (2.2-4.0); Potassium, Blood 2.9 mmol/L (3.5-5.5); Total Protein, Blood 7.9 g/dL (6.4-8.2)
[2023-07-07 18:34] LABS: Source, Urine Clean Catch
[2023-07-07 18:37] LABS: Appearance, Urine Clear (Clear); Bilirubin, Urine Neg (Neg); Blood, Urine 1+ (Neg); Color, Urine Yellow (P-Yellow); Glucose Qualitative, Urine Neg (Neg); Ketones, Urine Neg (Neg); Leukocyte Esterase, Urine 1+ (Neg); Nitrite, Urine Neg (Neg); Protein, Urine 2+ (Neg); Urobilinogen, Urine NORM (Normal); pH, Urine 6.5 (5.0-8.0)
[2023-07-07 18:46] LABS: Bacteria Few /hpf; Red Blood Cells, Urine 0-2 /hpf (0-2); Squamous Epithelial Cells Few /hpf (Few)
[2023-07-07 19:00] VITALS: BP 152/101
== END 2023-07-07 19:06 | disposition home or self-care (01) ==
LOC: ER 16:21
PROVIDERS: Emergency Medicine
DX: E87.6 Hypokalemia (principal); F10.229 Alcohol dependence with intoxication, unspecified; J44.9 Chronic obstructive pulmonary disease, unspecified; Z79.51 Long term (current) use of inhaled steroids; Z79.899 Other long term (current) drug therapy; Z88.0 Allergy status to penicillin; Z87.891 Personal history of nicotine dependence
CPT/HCPCS: 80053; 81001; 84484; 85025; 87086; 93005; 93010; 96360; 99284-25; A9270; J7030

== ENCOUNTER → 2023-07-08 | Outpatient (CLI) | payer OTHER ==
[2023-07-08 18:18] LABS: BASOPHILS ABSOLUTE AUTO 0.03 K/mm3 (0.00-0.23); BASOPHILS PERCENT AUTO 1 % (0-2); EOSINOPHILS ABSOLUTE AUTO 0.13 K/mm3 (0.00-0.68); EOSINOPHILS PERCENT AUTO 2 % (0-6); Hematocrit 40.6 % (33.0-51.0); Hemoglobin 13.2 g/dL (11.5-16.0); IMMATURE GRAN ABSOLUTE AUTO 0.01 K/mm3 (0.00-0.10); IMMATURE GRAN PERCENT AUTO 0 % (0-1); LYMPHOCYTES ABSOLUTE AUTO 1.19 K/mm3 (0.84-5.20); LYMPHOCYTES PERCENT AUTO 21 % (21-46); MONOCYTES ABSOLUTE AUTO 0.52 K/mm3 (0.16-1.47); MONOCYTES PERCENT AUTO 9 % (4-13); Mean Corpuscular HGB 32.7 pg (26.0-34.0); Mean Corpuscular HGB Conc 32.5 g/dL (31.5-36.5); Mean Corpuscular Volume 101 fL (80-100); Mean Platelet Volume 9.3 fL (9.1-12.4); NEUTROPHILS PERCENT AUTO 66 % (41-73); Platelet Count 302 K/mm3 (150-400); RDW Coefficient Variation 15.6 % (11.7-14.2); RDW Standard Deviation 57.8 fL (35.1-46.3); Red Blood Cell Count 4.04 M/mm3 (3.80-5.20); White Blood Cell Count 5.58 K/mm3 (4.00-11.30)
[2023-07-08 20:55] LABS: Alanine Aminotransfer (ALT/SGP 17 U/L (12-78); Albumin, Blood 3.7 g/dL (3.4-5.0); Albumin/Globulin Ratio 0.9 (0.8-1.8); Alk Phos 74 U/L (50-136); Anion Gap 5 mmol/L (6-16); Aspartate Aminotrans (AST/SGOT 16 U/L (12-37); Bilirubin, Total 0.7 mg/dL (0.1-1.0); Blood Urea Nitrogen 12 mg/dL (8-24); Bun/Creatinine Ratio 16.9 (12.0-20.0); CHOL/HDL RATIO 2.5; CO2, Blood 30 mmol/L (21-32); Calcium, Blood 9.1 mg/dL (8.5-10.1); Chloride, Blood 108 mmol/L (98-108); Cholesterol 179 mg/dL (50-200); Creatinine, Blood 0.71 mg/dL (0.40-1.00); Globulin, Blood 4.1 g/dL (2.2-4.0); Glomerular Filtration Rate 86 (60-); Glucose, Blood 106 mg/dL (70-99); HDL Cholesterol 71 mg/dL (>39); LDL/HDL RATIO 1.3; Low Density Lipoprotein Chol 95 mg/dL (0-110); Magnesium, Blood 1.8 mg/dL (1.6-2.4); Potassium, Blood 3.2 mmol/L (3.5-5.5); Sodium, Blood 143 mmol/L (136-145); Total Protein, Blood 7.8 g/dL (6.4-8.2); Triglycerides 63 mg/dL (30-160); Very Low Density Lipoprot Chol 12 mg/dL (6-32)
== END ==
LOC: LAB 17:02 → LAB SHORT 17:02
PROVIDERS: Family Medicine
DX: E03.9 Hypothyroidism, unspecified (principal); E78.2 Mixed hyperlipidemia; E55.9 Vitamin D deficiency, unspecified
CPT/HCPCS: 80053; 80061; 82306; 83735; 84443; 85025

== ENCOUNTER 2024-04-26 06:03 | Emergency (ER) | payer OTHER ==
[~2024-04-26] VITALS: Ht 167.6 cm; Wt 65.8 kg
[2024-04-26 10:38] LABS: BASOPHILS ABSOLUTE AUTO 0.04 K/mm3 (0.00-0.23); BASOPHILS PERCENT AUTO 1 % (0-2); EOSINOPHILS ABSOLUTE AUTO 0.06 K/mm3 (0.00-0.68); EOSINOPHILS PERCENT AUTO 1 % (0-6); Hemoglobin 14.2 g/dL (11.5-16.0); IMMATURE GRAN ABSOLUTE AUTO 0.03 K/mm3 (0.00-0.10); IMMATURE GRAN PERCENT AUTO 0 % (0-1); LYMPHOCYTES ABSOLUTE AUTO 1.81 K/mm3 (0.84-5.20); LYMPHOCYTES PERCENT AUTO 25 % (21-46); MONOCYTES ABSOLUTE AUTO 0.64 K/mm3 (0.16-1.47); MONOCYTES PERCENT AUTO 9 % (4-13); Mean Corpuscular HGB 36.3 pg (26.0-34.0); Mean Corpuscular HGB Conc 34.6 g/dL (31.5-36.5); Mean Corpuscular Volume 105 fL (80-100); NEUTROPHILS ABSOLUTE AUTO 4.71 K/mm3 (1.96-9.15); NEUTROPHILS PERCENT AUTO 65 % (41-73); Platelet Count 266 K/mm3 (150-400); RDW Standard Deviation 66.4 fL (35.1-46.3); Red Blood Cell Count 3.91 M/mm3 (3.80-5.20); White Blood Cell Count 7.29 K/mm3 (4.00-11.30)
[2024-04-26 10:58] LABS: Albumin, Blood 3.5 g/dL (3.4-5.0); Bilirubin, Total 0.6 mg/dL (0.1-1.0); Bun/Creatinine Ratio 17.8 (12.0-20.0); Creatinine, Blood 0.96 mg/dL (0.40-1.00); Globulin, Blood 3.6 g/dL (2.2-4.0); Magnesium, Blood 1.5 mg/dL (1.6-2.4); Potassium, Blood 3.8 mmol/L (3.5-5.5); Total Protein, Blood 7.1 g/dL (6.4-8.2)
[2024-04-26 11:06] LABS: Source, Urine Clean Catch
[2024-04-26 11:15] LABS: Bilirubin, Urine Neg (Neg); Blood, Urine Neg (Neg); Glucose Qualitative, Urine Neg (Neg); Ketones, Urine Neg (Neg); Leukocyte Esterase, Urine Neg (Neg); Nitrite, Urine Neg (Neg); Protein, Urine 2+ (Neg); Urobilinogen, Urine NORM (Normal)
[2024-04-26 11:36] LABS: Appearance, Urine Clear (Clear); Color, Urine Yellow (P-Yellow)
[2024-04-26 11:37] LABS: Bacteria Not Seen /hpf; Red Blood Cells, Urine Not Seen /hpf (0-2); Squamous Epithelial Cells Few /hpf (Few); White Blood Cells, Urine Not Seen /hpf (0-5)
[2024-04-26 12:11] LABS: Influenza A, PCR NEGATIVE (NEGATIVE); Influenza B, PCR NEGATIVE (NEGATIVE); Resp Syncytial Virus, PCR NEGATIVE (NEGATIVE)
[2024-04-26 12:12] LABS: SARS-Cov-2 (COVID-19) PCR, MMC POSITIVE (NEGATIVE)
[2024-04-26] MEDS ORDERED: LIDO700A20 TOP (12:53)
[2024-04-26] MEDS ORDERED: NAPR500 PO (12:53)
[2024-04-26 13:40] VITALS: BP 168/102
== END 2024-04-26 14:14 | disposition home or self-care (01) ==
LOC: ER 06:03
PROVIDERS: Physician Assistant
DX: U07.1 COVID-19 (principal); S22.089A Unspecified fracture of T11-T12 vertebra, initial encounter for closed fracture; J44.9 Chronic obstructive pulmonary disease, unspecified; E03.9 Hypothyroidism, unspecified; W01.0XXA Fall on same level from slipping, tripping and stumbling without subsequent striking against object, initial encounter; Z87.891 Personal history of nicotine dependence; Z79.51 Long term (current) use of inhaled steroids; Z79.899 Other long term (current) drug therapy; Z88.0 Allergy status to penicillin
CPT/HCPCS: 0241U; 73502; 74177; 80053; 81001; 83690; 83735; 85025; 99284-25; Q9967

== ENCOUNTER → 2024-07-10 | Outpatient (CLI) | payer OTHER ==
[~2024-07-10] MED LIST changes: +LIDO700A20 TOP; +NAPR500 PO
[2024-07-10 18:56] LABS: BASOPHILS ABSOLUTE AUTO 0.05 K/mm3 (0.00-0.23); BASOPHILS PERCENT AUTO 1 % (0-2); EOSINOPHILS PERCENT AUTO 3 % (0-6); Hematocrit 42.4 % (33.0-51.0); Hemoglobin 14.1 g/dL (11.5-16.0); IMMATURE GRAN ABSOLUTE AUTO 0.02 K/mm3 (0.00-0.10); IMMATURE GRAN PERCENT AUTO 0 % (0-1); LYMPHOCYTES ABSOLUTE AUTO 1.52 K/mm3 (0.84-5.20); LYMPHOCYTES PERCENT AUTO 21 % (21-46); MONOCYTES PERCENT AUTO 10 % (4-13); Mean Corpuscular HGB 36.5 pg (26.0-34.0); Mean Corpuscular HGB Conc 33.3 g/dL (31.5-36.5); Mean Corpuscular Volume 110 fL (80-100); NEUTROPHILS ABSOLUTE AUTO 4.77 K/mm3 (1.96-9.15); NEUTROPHILS PERCENT AUTO 66 % (41-73); Platelet Count 306 K/mm3 (150-400); RDW Coefficient Variation 13.6 % (11.7-14.2); RDW Standard Deviation 55.9 fL (35.1-46.3); Red Blood Cell Count 3.86 M/mm3 (3.80-5.20); White Blood Cell Count 7.26 K/mm3 (4.00-11.30)
[2024-07-10 20:54] LABS: Alanine Aminotransfer (ALT/SGP 14 U/L (12-78); Albumin, Blood 3.9 g/dL (3.4-5.0); Albumin/Globulin Ratio 0.9 (0.8-1.8); Alk Phos 71 U/L (50-136); Anion Gap 10 mmol/L (3-11); Aspartate Aminotrans (AST/SGOT 18 U/L (12-37); Bilirubin, Total 1.1 mg/dL (0.1-1.0); Blood Urea Nitrogen 12 mg/dL (8-24); Bun/Creatinine Ratio 16.9 (12.0-20.0); CHOL/HDL RATIO 2.8; CO2, Blood 32 mmol/L (21-32); Chloride, Blood 99 mmol/L (98-108); Cholesterol 216 mg/dL (50-200); Creatinine, Blood 0.71 mg/dL (0.40-1.00); Free Thyroxine 0.73 ng/dL (0.70-1.60); Globulin, Blood 4.2 g/dL (2.2-4.0); Glomerular Filtration Rate 85 (60-); Glucose, Blood 101 mg/dL (70-99); HDL Cholesterol 78 mg/dL (>39); LDL/HDL RATIO 1.6; Low Density Lipoprotein Chol 126 mg/dL (0-110); Potassium, Blood 2.9 mmol/L (3.5-5.5); Sodium, Blood 138 mmol/L (136-145); Total Protein, Blood 8.1 g/dL (6.4-8.2); Triglycerides 62 mg/dL (30-160); Very Low Density Lipoprot Chol 12 mg/dL (6-32)
== END | disposition home or self-care (01) ==
LOC: LAB SHORT 17:12 → LAB 17:12
PROVIDERS: Nurse Practitioner Family
DX: E55.9 Vitamin D deficiency, unspecified (principal); E03.9 Hypothyroidism, unspecified; I10 Essential (primary) hypertension
CPT/HCPCS: 80053; 80061; 82306; 84439; 84443; 85025

== ENCOUNTER → 2024-09-13 | Outpatient (CLI) | payer OTHER ==
[2024-09-13 12:25] LABS: BASOPHILS ABSOLUTE AUTO 0.04 K/mm3 (0.00-0.23); BASOPHILS PERCENT AUTO 1 % (0-2); EOSINOPHILS ABSOLUTE AUTO 0.13 K/mm3 (0.00-0.68); EOSINOPHILS PERCENT AUTO 2 % (0-6); Hematocrit 42.2 % (33.0-51.0); IMMATURE GRAN ABSOLUTE AUTO 0.02 K/mm3 (0.00-0.10); IMMATURE GRAN PERCENT AUTO 0 % (0-1); LYMPHOCYTES ABSOLUTE AUTO 1.25 K/mm3 (0.84-5.20); LYMPHOCYTES PERCENT AUTO 20 % (21-46); MONOCYTES ABSOLUTE AUTO 0.62 K/mm3 (0.16-1.47); MONOCYTES PERCENT AUTO 10 % (4-13); Mean Corpuscular HGB 32.8 pg (26.0-34.0); Mean Corpuscular HGB Conc 33.2 g/dL (31.5-36.5); Mean Corpuscular Volume 99 fL (80-100); Mean Platelet Volume 8.9 fL (9.1-12.4); NEUTROPHILS PERCENT AUTO 67 % (41-73); Platelet Count 258 K/mm3 (150-400); RDW Coefficient Variation 14.3 % (11.7-14.2); RDW Standard Deviation 51.5 fL (35.1-46.3); Red Blood Cell Count 4.27 M/mm3 (3.80-5.20); White Blood Cell Count 6.26 K/mm3 (4.00-11.30)
[2024-09-13 12:41] LABS: Albumin, Blood 3.6 g/dL (3.4-5.0); Albumin/Globulin Ratio 0.9 (0.8-1.8); Bilirubin, Total 0.8 mg/dL (0.1-1.0); Bun/Creatinine Ratio 19.6 (12.0-20.0); Calcium, Blood 9.4 mg/dL (8.5-10.1); Creatinine, Blood 0.92 mg/dL (0.40-1.00); Globulin, Blood 3.9 g/dL (2.2-4.0); Magnesium, Blood 1.6 mg/dL (1.6-2.4); Potassium, Blood 3.6 mmol/L (3.5-5.5); Total Protein, Blood 7.5 g/dL (6.4-8.2)
== END ==
LOC: LAB SHORT 12:21 → LAB 12:21
PROVIDERS: Chiropractor
DX: R07.9 Chest pain, unspecified (principal)
CPT/HCPCS: 80053; 83735; 84484; 85025; 85379

== ENCOUNTER → 2024-10-30 | Outpatient (CLI) | payer OTHER ==
[2024-10-30 17:28] LABS: Free Thyroxine 1.7 ng/dL (0.70-1.60); Thyroid Stimulating Hormone 3.85 uIU/mL (0.360-4.800)
== END ==
LOC: LAB SHORT 10:00 → LAB 10:00
PROVIDERS: Nurse Practitioner Family
DX: E03.9 Hypothyroidism, unspecified (principal)
CPT/HCPCS: 84439; 84443

== ENCOUNTER → 2025-01-15 | Outpatient (CLI) | payer OTHER ==
[2025-01-15 19:33] LABS: CHOL/HDL RATIO 2.3; Cholesterol 162 mg/dL (50-200); Free Thyroxine 1.34 ng/dL (0.70-1.60); HDL Cholesterol 69 mg/dL (>39); LDL/HDL RATIO 1.1; Low Density Lipoprotein Chol 79 mg/dL (0-110); Thyroid Stimulating Hormone 0.151 uIU/mL (0.360-4.800); Triglycerides 69 mg/dL (30-160); Very Low Density Lipoprot Chol 13 mg/dL (6-32)
== END | disposition home or self-care (01) ==
LOC: LAB SHORT 11:06 → LAB 11:06
PROVIDERS: Registered Nurse Emergency
DX: Z13.220 Encounter for screening for lipoid disorders (principal); Z13.29 Encounter for screening for other suspected endocrine disorder; R53.82 Chronic fatigue, unspecified; Z79.899 Other long term (current) drug therapy
CPT/HCPCS: 36415; 80061; 84439; 84443

== ENCOUNTER → 2025-05-08 | Outpatient (CLI) | payer OTHER ==
[2025-05-08 17:53] LABS: BASOPHILS ABSOLUTE AUTO 0.03 K/mm3 (0.00-0.23); BASOPHILS PERCENT AUTO 0 % (0-2); EOSINOPHILS ABSOLUTE AUTO 0.19 K/mm3 (0.00-0.68); EOSINOPHILS PERCENT AUTO 3 % (0-6); Hematocrit 47.5 % (33.0-51.0); Hemoglobin 15.6 g/dL (11.5-16.0); IMMATURE GRAN ABSOLUTE AUTO 0.02 K/mm3 (0.00-0.10); IMMATURE GRAN PERCENT AUTO 0 % (0-1); LYMPHOCYTES ABSOLUTE AUTO 1.20 K/mm3 (0.84-5.20); LYMPHOCYTES PERCENT AUTO 18 % (21-46); MONOCYTES ABSOLUTE AUTO 0.65 K/mm3 (0.16-1.47); MONOCYTES PERCENT AUTO 10 % (4-13); Mean Corpuscular HGB Conc 32.8 g/dL (31.5-36.5); Mean Corpuscular Volume 99 fL (80-100); NEUTROPHILS ABSOLUTE AUTO 4.78 K/mm3 (1.96-9.15); NEUTROPHILS PERCENT AUTO 70 % (41-73); NRBC ABSOLUTE 0.00 K/mm3 (0.00-0.02); NRBC Auto 0.0 /100 WBC (0.0-0.2); Platelet Count 289 K/mm3 (150-400); RDW Coefficient Variation 13.6 % (11.7-14.2); RDW Standard Deviation 49.5 fL (35.1-46.3)
[2025-05-08 18:58] LABS: Alanine Aminotransfer (ALT/SGP 18.0 U/L (12-78); Albumin, Blood 3.8 g/dL (3.4-5.0); Albumin/Globulin Ratio 1.0 (0.8-1.8); Anion Gap 7.0 mmol/L (3-11); Aspartate Aminotrans (AST/SGOT 16.0 U/L (12-37); Bilirubin, Total 0.7 mg/dL (0.1-1.0); Blood Urea Nitrogen 16.0 mg/dL (8-24); CO2, Blood 32.0 mmol/L (21-32); Calcium, Blood 9.8 mg/dL (8.5-10.1); Chloride, Blood 101.0 mmol/L (98-108); Creatinine, Blood 0.85 mg/dL (0.40-1.00); Ferritin, Serum 115.0 ng/mL (8-252); Globulin, Blood 3.9 g/dL (2.2-4.0); Glucose, Blood 94.0 mg/dL (70-99); Potassium, Blood 4.1 mmol/L (3.5-5.5); Sodium, Blood 136.0 mmol/L (136-145); Thyroid Stimulating Hormone 0.043 uIU/mL (0.360-4.800); Total Iron Binding Capacity 269.0 ug/dL (250-450); Total Protein, Blood 7.7 g/dL (6.4-8.2)
== END ==
LOC: LAB 09:08 → LAB SHORT 09:08
PROVIDERS: Family Medicine
DX: E03.9 Hypothyroidism, unspecified (principal); D53.9 Nutritional anemia, unspecified; I48.0 Paroxysmal atrial fibrillation
CPT/HCPCS: 80053; 82607; 82728; 82746; 83540; 83550; 84443; 85025